=== PATIENT | male | born 1935 | race Two or more races ===

== ENCOUNTER 2018-06-12 10:46 | Emergency (ER) | payer OTHER ==
[~2018-06-12] VITALS: Ht 167.6 cm; Wt 74.8 kg
[2018-06-12] MEDS ORDERED: LOVASTATIN20 MG (11:03)
[2018-06-12] MEDS ORDERED: AMLODIPINE BESYL5 MG (11:03)
[2018-06-12] MEDS ORDERED: IRBESARTAN-HCT1 EACH (11:04)
== END 2018-06-12 14:09 | disposition home or self-care (01) ==
LOC: ER 10:46
DX: G89.11 Acute pain due to trauma (principal); M54.5 Low back pain; M62.830 Muscle spasm of back